=== PATIENT | female | born 1960 | race Asian ===

== ENCOUNTER 2017-08-06 05:37 | Day surgery (SDC) | payer BC ==
[2017-08-02 09:45] VITALS: BP 133/54
[2017-08-02 10:27] LABS: BASOPHILS % (AUTO) 0.6 % (0.0-5.0); EOSINOPHILS % (AUTO) 3.2 % (0.0-8.0); MEAN CORPUSCULAR HEMOGLOBIN 27.2 pg (27.0-33.0); MEAN CORPUSCULAR HGB CONC 32.9 g/dL (32.0-36.0); MEAN CORPUSCULAR VOLUME 82.7 fL (79-99); MONOCYTES % (AUTO) 7.7 % (3.0-13.0); NEUTROPHILS % (AUTO) 49.5 % (40.0-77.0); PLATELET COUNT (AUTO) 238 K/uL (130-400); RED CELL DISTRIBUTION WIDTH 14.5 % (11.0-15.5); WHITE BLOOD COUNT (AUTO) 5.4 K/uL (4.8-10.8)
[2017-08-02 10:31] LABS: APPEARANCE,URINE Clear (CLEAR); BILIRUBIN,URINE Negative (NEGATIVE); COLOR,URINE Yellow (YELLOW); GLUCOSE, URINE (UA) Negative (NEGATIVE); KETONES,URINE Negative (NEGATIVE); LEUKOCYTE ESTERASE ,URINE Negative (NEGATIVE); NITRATE,URINE Negative (NEGATIVE); OCCULT BLOOD,URINE Negative (NEGATIVE); PH,URINE 6.5 (5.0-8.0); PROTEIN,URINE Negative (NEGATIVE); UROBILINOGEN,URINE 0.2 mg/dL (0.2-1.0)
[2017-08-02 10:39] LABS: CREATININE 0.8 mg/dL (0.5-1.5); POTASSIUM 4.6 mmol/L (3.5-5.1)
[2017-08-02 10:42] LABS: INR 0.99 (0.85-1.15); PARTIAL THROMBOPLASTIN TIME 28.1 SEC (26.3-35.5); PROTHROMBIN TIME 10.4 SEC (9.6-11.6)
[2017-08-06] VITALS (11 sets, daily range): BP systolic 95–125; BP diastolic 41–57
[~2017-08-06] VITALS: Ht 160 cm; Wt 74.0 kg
[~2017-08-06 05:37] MED LIST: ALPR0.5T8 PO; ASPI-1005 PO; CALC-1038 PO; FISH1CAP20 PO; LISI-613 PO; MULT-1203 PO; ROSU40TA28 PO; SODIUM CHLORIDE 0.9% 500ML 500 ML IV SCH
[2017-08-06] MEDS ORDERED: ISOVUE-370 50ML VIAL IV ONE (07:11)
[2017-08-06] MEDS ORDERED: NITROGLYCERIN 50 MG/D5% WATER 1 BOT ONE (07:11)
[2017-08-06] MEDS ORDERED: LIDOCAINE HCL 2% 20ML ONE (07:11)
[2017-08-06] MEDS ORDERED: IOPAMIDOL-370 100 ML VIAL IV ONE (07:11)
[2017-08-06] MEDS ORDERED: HEPARIN SODIUM 1000UNIT/ML 10ML VIAL ONE (07:11)
[2017-08-06] MEDS ORDERED: SODIUM BICARB 50MEQ 50ML VIAL ONE (07:11)
[2017-08-06] MEDS ORDERED: SODIUM CHLORIDE 0.9% 1000ML 1,000 ML IV ONE (07:22)
[2017-08-06] MEDS ORDERED: MIDAZOLAM HCL 1 MG/ML 2ML VIAL ONE ×2 (07:34→07:44)
[2017-08-06] MEDS ORDERED: MEPERIDINE-PF 25 MG/ML SYG ONE ×2 (07:34→07:44)
[2017-08-06] MEDS ORDERED: SODIUM CHLORIDE 0.9% 1000ML 1,000 ML IV SCH (08:05)
== END 2017-08-06 12:50 | disposition home or self-care (01) ==
LOC: DAH 05:37
PROVIDERS: ATTEND Internal Medicine Cardiovascular Disease
DX: I25.10 Atherosclerotic heart disease of native coronary artery without angina pectoris (principal); I10 Essential (primary) hypertension; I44.7 Left bundle-branch block, unspecified; J45.909 Unspecified asthma, uncomplicated; E78.5 Hyperlipidemia, unspecified; F41.9 Anxiety disorder, unspecified; Z79.82 Long term (current) use of aspirin; Z79.899 Other long term (current) drug therapy; Z98.890 Other specified postprocedural states
CPT/HCPCS: 36415; 71045; 80048; 81003; 85025; 85610; 85730; 93005; 93458; 99156; 99157; A4606; C1760; C1894; J1644; J2175 ×2; J2250 ×2; J3490 ×3; J7030; Q9967 ×2; 99152; 99153